=== PATIENT | female | born 1985 | race Caucasian/White ===

== ENCOUNTER 2017-09-01 07:22 | Inpatient (IN) | payer BC ==
[2017-09-01] MEDS ORDERED: Methylergonovine 0.2 MG/1 ML Amp IM PRN (09:54)
[2017-09-01] MEDS ORDERED: Misoprostol 200 MCG Tab PO PRN (09:54)
[2017-09-01] MEDS ORDERED: Water For Irrigation,Sterile 1,000 ML Container IRR PRN (09:54)
[2017-09-01] MEDS ORDERED: Nalbuphine 10 MG/1 ML Vial IVPUSH PRN ×2 (09:54→23:22)
[2017-09-01] MEDS ORDERED: Lidocaine 1% 50 ML MDV INJECT PRN (09:54)
[2017-09-01] MEDS ORDERED: Carboprost Tromethamine 250 MCG/1 ML Amp IM PRN (09:54)
[2017-09-01] MEDS ORDERED: Tranexamic Acid 1,000 MG in Sodium Chloride 0.9% 100 ML IV PRN (09:54)
[2017-09-01] MEDS ORDERED: Sodium Chloride 0.9% 2.5 ML Syringe FLUSH PRN (09:54)
[2017-09-01] MEDS ORDERED: Sodium Chloride 0.9% 10 ML Syringe FLUSH PRN (09:54)
[2017-09-01] MEDS ORDERED: Oxytocin/0.9 % Sodium Chloride 30 UNIT/500 ML BAG IV SCH ×2 (10:00→12:15)
--- NOTE | 2017-09-01 10:21 | PCM.LDHP ---
L&D History of Present Illness - General Date of Service: 09/01/17 Admit Problem/Dx: Patient Status Order with Admit Dx/Problem 09/01/17 07:51 Patient Status [ADT] Routine 09/01/17 09:55 Patient Status [ADT] Routine Admission Diagnosis/Problem Admission Diagnosis/Problem - planned Source of Information: Patient History Limitations: Reports: No Limitations - History of Present Illness Improves with: Reports: None Worsens with: Reports: None Associated Symptoms: Reports: N - Related Data Allergies/Adverse Reactions: Allergies Allergy/AdvReac Type Severity Reaction Status Date / Time No Known Allergies Allergy Verified 08/31/17 10:32 H&P Review of Systems - Review of Systems: Review Of Systems: See Below General: Reports: No Symptoms HEENT: Reports: No Symptoms Pulmonary: Reports: No Symptoms Cardiovascular: Reports: No Symptoms Gastrointestinal: Reports: No Symptoms Genitourinary: Reports: No Symptoms Musculoskeletal: Reports: No Symptoms Skin: Reports: No Symptoms Psychiatric: Reports: No Symptoms Neurological: Reports: No Symptoms Hematologic/Lymphatic: Reports: No Symptoms Immunologic: Reports: No Symptoms L&D Exam - Exam Exam: See Below - Vital Signs Weight: 88.451 kg - OB Specific Fundal Height In cm: 38 Contraction Intensity: Mild to Moderate Movement: Active Heart Tones: Present Presentation: Vertex - Edwards Score Edwards Score Cervix Position: Anterior Edwards Score Consistency: Soft Edwards Score Effacement: >80% Edwards Score Dilation: 1-2 cm Edwards Score Infant's Station: -1 ,0 Edwards Score Total: 10 - Exam General: Alert, Oriented HEENT: PERRLA, Conjunctiva Clear, EACs Clear, EOMI, Hearing Intact, Mucosa Moist & [place], Nares Patent, Normal Nasal Septum, Posterior Pharynx Clear, TMs Clear Neck: Supple, Trachea Midline Lungs: Clear to Auscultation, Normal Respiratory Effort Cardiovascular: Regular Rate, Regular Rhythm GI/Abdominal Exam: Normal Bowel Sounds, Soft, Non-Tender, No Organomegaly, No Distention, No Abnormal Bruit, No Mass, Pelvis Stable Rectal Exam: Normal Exam, Normal Rectal Tone Genitourinary: Normal external exam, Normal bimanual exam, Normal speculum exam Back Exam: Normal Inspection, Full Range of Motion Extremities: Normal Inspection, Normal Range of Motion, Non-Tender, No Pedal Edema, Normal Capillary Refill Skin: Warm, Dry, Intact Neurological: Cranial Nerves Intact, Reflexes Equal Bilateral Psychiatric: Alert, Normal Affect, Normal Mood - Patient Data Lab Results Last 24 hrs: Laboratory Results - last 24 hr 09/01/17 Range/Units 07:35 Membrane Rupture POSITIVE Problem List Initiated/Reviewed/Updated: Yes Orders Last 24hrs: Active Orders 24 hr Category Date Time Status Patient Status [ADT] Routine ADT 09/01/17 07:51 Active Patient Status [ADT] Routine ADT 09/01/17 09:55 Active Heart Tones [RC] CONTINUOUS Care 09/01/17 09:55 Active Non Stress Test [RC] PER UNIT ROUTINE Care 09/01/17 07:51 Active Non Stress Test [RC] PER UNIT ROUTINE Care 09/01/17 09:55 Active May Shower [RC] ASDIRECTED Care 09/01/17 09:55 Active Notify Provider [RC] PRN Care 09/01/17 09:55 Active Up ad Trish [RC] ASDIRECTED Care 09/01/17 07:51 Active Up ad Trish [RC] ASDIRECTED Care 09/01/17 09:55 Active Vaginal Exam [RC] Click to Edit Care 09/01/17 07:51 Active Vaginal Exam [RC] PRN Care 09/01/17 09:55 Active Vital Signs [RC] PER UNIT ROUTINE Care 09/01/17 07:51 Active Vital Signs [RC] PER UNIT ROUTINE Care 09/01/17 09:55 Active CBC W/O DIFF,HEMOGRAM [HEME] Routine Lab 09/01/17 09:55 Ordered TYPE AND SCREEN [BBK] Routine Lab 09/01/17 09:55 Ordered Butorphanol [Stadol] Med 09/01/17 09:54 Active 1 mg IVPUSH Q1H PRN Carboprost Tromethamine [Hemabate DS] Med 09/01/17 09:54 Active 250 mcg IM ASDIRECTED PRN Lactated Ringers [Ringers, Lactated] 1,000 ml Med 09/01/17 10:00 Active IV ASDIRECTED Lidocaine 1% [Xylocaine 1%] Med 09/01/17 09:54 Active 50 ml INJECT .ONCE PRN Methylergonovine [Methergine] Med 09/01/17 09:54 Active 0.2 mg IM ASDIRECTED PRN Misoprostol [Cytotec] Med 09/01/17 09:54 Active 200 mcg PO .ONCE PRN Nalbuphine [Nubain] Med 09/01/17 09:54 Active 10 mg IVPUSH Q1H PRN Oxytocin/0.9 % Sodium Chloride [Oxytocin 30 Unit/500 ML Med 09/01/17 10:00 Active -NS] 30 unit in 500 ml IV TITRATE Sodium Chloride 0.9% [Saline Flush] Med 09/01/17 09:54 Active 10 ml FLUSH ASDIRECTED PRN Sodium Chloride 0.9% [Saline Flush] Med 09/01/17 09:54 Active 2.5 ml FLUSH ASDIRECTED PRN Tranexamic Acid [Cyklokapron] 1,000 mg Med 09/01/17 09:54 Active Sodium Chloride 0.9% [Normal Saline] 100 ml IV ONETIME Water For Irrigation,Sterile [Sterile Water for Med 09/01/17 09:54 Active Irrigation] 1,000 ml IRR ASDIRECTED PRN Scalp Electrode [WOMSER] Per Unit Routine Oth 09/01/17 09:55 Ordered Peripheral IV Insertion Adult [OM.PC] Routine Oth 09/01/17 09:55 Ordered Resuscitation Status Routine Resus Stat 09/01/17 07:51 Ordered Medication Orders Butorphanol Tartrate (Stadol) 1 mg IVPUSH Q1H PRN PRN Reason: Pain Carboprost Tromethamine (Hemabate Ds) 250 mcg IM ASDIRECTED PRN PRN Reason: Post Hemorrhage Tranexamic Acid 1,000 mg/ (Sodium Chloride) 110 mls @ 660 mls/hr IV ONETIME PRN PRN Reason: Bleeding Lactated Ringer's (Ringers, Lactated) 1,000 mls @ 150 mls/hr IV ASDIRECTED GODWIN Oxytocin/Sodium Chloride (Oxytocin 30 Unit/500 Ml-Ns) 30 unit in 500 mls @ 999 mls/hr IV TITRATE GODWIN Lidocaine HCl (Xylocaine 1%) 50 ml INJECT .ONCE PRN PRN Reason: Laceration repair Methylergonovine Maleate (Methergine) 0.2 mg IM ASDIRECTED PRN PRN Reason: Post Hemorrhage Misoprostol (Cytotec) 200 mcg PO .ONCE PRN PRN Reason: Post Hemorrhage Nalbuphine HCl (Nubain) 10 mg IVPUSH Q1H PRN PRN Reason: Pain (severe 7-10) Sodium Chloride (Saline Flush) 10 ml FLUSH ASDIRECTED PRN PRN Reason: Keep Vein Open Sodium Chloride (Saline Flush) 2.5 ml FLUSH ASDIRECTED PRN PRN Reason: Keep Vein Open Sterile Water (Sterile Water For Irrigation) 1,000 ml IRR ASDIRECTED PRN PRN Reason: delivery Assessment/Plan Comment:: IUP term with SROM P0000 Cx. 3/80/ V. Plan to admit the pt she hernando need potocin argumentation later on. She may have epidural when it is appropriate.
[2017-09-01] MEDS: Lactated Ringers 1,000 ML IV SCH ×2 (12:21→15:00)
[2017-09-01] MEDS: Butorphanol 1 MG/ML SDV IVPUSH PRN ×2 (12:41→14:03)
--- NOTE | 2017-09-01 14:31 | PCM.PREANE ---
Preanesthetic Assessment - Anesthesia/Transfusion/Family Hx Anesthesia History: No Prior Anesthesia Transfusion History: No Prior Transfusion(s) - Review of Systems General: No Symptoms Pulmonary: No Symptoms Cardiovascular: No Symptoms Gastrointestinal: No Symptoms Neurological: No Symptoms Other: Reports: None - Physical Assessment Height: 5 ft 4 in Weight: 88.451 kg ASA Class: 2 Mental Status: Alert & Oriented x3 Airway Class: Mallampati = 2 Dentition: Reports: Normal Dentition Thyro-Mental Finger Breadths: 3 Mouth Opening Finger Breadths: 3 ROM/Head Extension: Full Lungs: Clear to Auscultation, Normal Respiratory Effort Cardiovascular: Regular Rate, Regular Rhythm - Lab Values: Laboratory Last Values WBC 17.41 K/uL (4.0-11.0) H 09/01/17 10:15 RBC 4.01 M/uL (4.30-5.90) L 09/01/17 10:15 Hgb 11.1 g/dL (12.0-16.0) L 09/01/17 10:15 Hct 33.6 % (36.0-46.0) L 09/01/17 10:15 MCV 83.8 fL (80.0-98.0) 09/01/17 10:15 MCH 27.7 pg (27.0-32.0) 09/01/17 10:15 MCHC 33.0 g/dL (31.0-37.0) 09/01/17 10:15 RDW Std Deviation 48.1 fl (28.0-62.0) 09/01/17 10:15 RDW Coeff of Jose 16 % (11.0-15.0) H 09/01/17 10:15 Plt Count 240 K/uL (150-400) 09/01/17 10:15 MPV 12.60 fL (7.40-12.00) H 09/01/17 10:15 Nucleated RBC % 0.0 /100WBC 09/01/17 10:15 Nucleated RBCs # 0 K/uL 09/01/17 10:15 Membrane Rupture POSITIVE 09/01/17 07:35 Blood Type O POSITIVE 09/01/17 10:15 Antibody Screen NEGATIVE 09/01/17 10:15 - Allergies Allergies/Adverse Reactions: Allergies Allergy/AdvReac Type Severity Reaction Status Date / Time No Known Allergies Allergy Verified 08/31/17 10:32 - Acknowledgements Anesthesia Type Planned: Epidural Pt an Appropriate Candidate for the Planned Anesthesia: Yes Alternatives and Risks of Anesthesia Discussed w Pt/Guardian: Yes Pt/Guardian Understands and Agrees with Anesthesia Plan: Yes PreAnesthesia Questionnaire - Past Health History Medical/Surgical History: Denies Medical/Surgical History HEENT History: Reports: None Cardiovascular History: Reports: None Respiratory History: Reports: Asthma Gastrointestinal History: Reports: GERD Genitourinary History: Reports: None 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 Para: 0 LMP (Approximate): Musculoskeletal History: Reports: None Neurological History: Reports: None Psychiatric History: Reports: None Endocrine/Metabolic History: Reports: Obesity/BMI 30+ Hematologic History: Reports: None Immunologic History: Reports: None Oncologic (Cancer) History: Reports: None Dermatologic History: Reports: None - Infectious Disease History Infectious Disease History: Reports: None - SUBSTANCE USE Smoking Status *Q: Never Smoker Second Hand Smoke Exposure: No Recreational Drug Use History: No - CURRENT (IN HOUSE) MEDS Current Meds: Current Medications Butorphanol Tartrate (Stadol) 1 mg IVPUSH Q1H PRN PRN Reason: Pain Last Admin: 09/01/17 14:03 Dose: 1 mg Carboprost Tromethamine (Hemabate Ds) 250 mcg IM ASDIRECTED PRN PRN Reason: Post Hemorrhage Tranexamic Acid 1,000 mg/ (Sodium Chloride) 110 mls @ 660 mls/hr IV ONETIME PRN PRN Reason: Bleeding Lactated Ringer's (Ringers, Lactated) 1,000 mls @ 150 mls/hr IV ASDIRECTED GODWIN Last Admin: 09/01/17 12:21 Dose: 150 mls/hr Oxytocin/Sodium Chloride (Oxytocin 30 Unit/500 Ml-Ns) 30 unit in 500 mls @ 999 mls/hr IV TITRATE GODWIN Oxytocin/Sodium Chloride (Oxytocin 30 Unit/500 Ml-Ns) 30 unit in 500 mls @ 2 mls/hr IV TITRATE GODWIN; 2 MUNITS/MIN PRN Reason: Protocol Last Infusion: 09/01/17 13:14 Dose: 6 munits/min, 6 mls/hr Lidocaine HCl (Xylocaine 1%) 50 ml INJECT .ONCE PRN PRN Reason: Laceration repair Methylergonovine Maleate (Methergine) 0.2 mg IM ASDIRECTED PRN PRN Reason: Post Hemorrhage Misoprostol (Cytotec) 200 mcg PO .ONCE PRN PRN Reason: Post Hemorrhage Nalbuphine HCl (Nubain) 10 mg IVPUSH Q1H PRN PRN Reason: Pain (severe 7-10) Sodium Chloride (Saline Flush) 10 ml FLUSH ASDIRECTED PRN PRN Reason: Keep Vein Open Sodium Chloride (Saline Flush) 2.5 ml FLUSH ASDIRECTED PRN PRN Reason: Keep Vein Open Sterile Water (Sterile Water For Irrigation) 1,000 ml IRR ASDIRECTED PRN PRN Reason: delivery
--- NOTE | 2017-09-01 17:26 | PCM.PNLD ---
Labor Progress Note - VS & Meds Active Medications: Current Medications Butorphanol Tartrate (Stadol) 1 mg IVPUSH Q1H PRN PRN Reason: Pain Last Admin: 09/01/17 14:03 Dose: 1 mg Carboprost Tromethamine (Hemabate Ds) 250 mcg IM ASDIRECTED PRN PRN Reason: Post Hemorrhage Tranexamic Acid 1,000 mg/ (Sodium Chloride) 110 mls @ 660 mls/hr IV ONETIME PRN PRN Reason: Bleeding Lactated Ringer's (Ringers, Lactated) 1,000 mls @ 150 mls/hr IV ASDIRECTED GODWIN Last Admin: 09/01/17 15:00 Dose: 150 mls/hr Oxytocin/Sodium Chloride (Oxytocin 30 Unit/500 Ml-Ns) 30 unit in 500 mls @ 999 mls/hr IV TITRATE GODWIN Oxytocin/Sodium Chloride (Oxytocin 30 Unit/500 Ml-Ns) 30 unit in 500 mls @ 2 mls/hr IV TITRATE GODWIN; 2 MUNITS/MIN PRN Reason: Protocol Last Infusion: 09/01/17 15:18 Dose: 4 munits/min, 4 mls/hr Lidocaine HCl (Xylocaine 1%) 50 ml INJECT .ONCE PRN PRN Reason: Laceration repair Methylergonovine Maleate (Methergine) 0.2 mg IM ASDIRECTED PRN PRN Reason: Post Hemorrhage Misoprostol (Cytotec) 200 mcg PO .ONCE PRN PRN Reason: Post Hemorrhage Nalbuphine HCl (Nubain) 10 mg IVPUSH Q1H PRN PRN Reason: Pain (severe 7-10) Sodium Chloride (Saline Flush) 10 ml FLUSH ASDIRECTED PRN PRN Reason: Keep Vein Open Sodium Chloride (Saline Flush) 2.5 ml FLUSH ASDIRECTED PRN PRN Reason: Keep Vein Open Sterile Water (Sterile Water For Irrigation) 1,000 ml IRR ASDIRECTED PRN PRN Reason: delivery Discontinued Medications Fentanyl/Bupivacaine HCl (Lcvkdbfo-Sgyig-Gn 2 Mcg/Ml-0.125%) Confirm Administered Dose 100 mls @ as directed EP .STK-MED ONE Stop: 09/01/17 14:34 - Uterine Contractions Uterine Monitoring Mode: External [place] Contraction Intensity: Moderate - Monitoring Monitor Mode: External Ultrasound Heart Rate (FHR) Variability: Moderate (6-25 bmp) Accelerations: Present, 15x15 Decelerations: None Strip Review: Category I - Vaginal Exam Dilation (cm): 4-5 Effacement (Percent): 100 Station: -3 Cervical Position: Anterior Sterile Vaginal Exam Performed By: Steven Perera - Labor Progress (Free Text) Labor Progress: Pt had Epidural she is on pitocin. tameka keep current management and reevaluate at 10pm.
[2017-09-01] MEDS ORDERED: Bupivacaine 0.5% 10 ML SDV ONE ×2 (21:17→22:35)
[2017-09-01] MEDS ORDERED: ceFAZolin/Dextrose,Iso-Osmotic 2 GM/50 ML Duplex Bag IV ONE (22:35)
[2017-09-01] MEDS ORDERED: Oxytocin 10 Units/1 ML SDV ONE (23:00)
[2017-09-01] MEDS ORDERED: Ondansetron 4 MG/2 ML SDV ONE (23:00)
[2017-09-01] MEDS ORDERED: Morphine PF 1 MG/ML Amp ONE (23:05)
[2017-09-01] MEDS ORDERED: fentaNYL 100 MCG/2 ML SDV IVPUSH PRN (23:22)
[2017-09-01] MEDS ORDERED: Acetaminophen/oxyCODONE 325-5 MG Tab PO PRN ×3 (23:22→23:34)
[2017-09-01] MEDS ORDERED: Phenylephrine/Normal Saline 100 MCG/ML 10 ML Syringe ONE (23:23)
[2017-09-01] MEDS ORDERED: Octyl 2-Cyanoacrylate 1 Tube ONE (23:32)
[2017-09-01] MEDS ORDERED: diphenhydrAMINE 50 MG/ML SDV IVPUSH PRN (23:34)
[2017-09-01] MEDS ORDERED: Bisacodyl 10 MG Supp RECTAL PRN (23:34)
[2017-09-01] MEDS ORDERED: Ibuprofen 800 MG Tab PO PRN (23:34)
[2017-09-01] MEDS ORDERED: Ondansetron 4 MG/2 ML SDV IV PRN (23:34)
[2017-09-01] MEDS ORDERED: Lanolin 100% Cream 7 GM Tube TOP PRN (23:34)
--- NOTE | 2017-09-01 23:38 | PCM.OPNOTE ---
- General Post-Op/Procedure Note Date of Surgery/Procedure: 09/01/17 Operative Procedure(s): Primary C/Section Pre Op Diagnosis: IUP 40wks faliar to progress Post-Op Diagnosis: Same Primary Surgeon: Steven Perera Cash Sales Audit Clerk: Michelle Casillas EBL in mLs: 750 Complications: None Condition: Good
--- NOTE | 2017-09-01 23:42 | PCM.SN ---
- Free Text/Narrative Note: caled in for C section, 1st stage labor arrest. no distress. Working epidural. NKDA. Plan -top off epidural for c/s, epidural duramorph for post op analgesia.
[2017-09-01] MEDS ORDERED: Lactated Ringers 1,000 ML IV SCH (23:45)
[2017-09-02] MEDS: Ketorolac 30 MG/ML SDV IVPUSH SCH ×4 (00:03→18:44)
--- NOTE | 2017-09-02 00:07 | PCM.POSTAN ---
POST ANESTHESIA ASSESSMENT - MENTAL STATUS Mental Status: Alert, Oriented - VITAL SIGNS Pulse Rate: 117 SaO2: 100 Resp Rate: 20 Blood Pressure: 123/60 - RESPIRATORY Respiratory Status: Respiratory Rate WNL, Airway Patent, O2 Saturation Stable - CARDIOVASCULAR CV Status: Pulse Rate WNL, Blood Pressure Stable - GASTROINTESTINAL GI Status: No Symptoms - POST OP HYDRATION Hydration Status: Adequate & Stable - OBSERVATIONS Free Text/Narrative:: Pt's pre-op tachycardia remains stable at this time.
--- NOTE | 2017-09-02 01:08 | OR ---
SURGEON: Steven Perera MD DATE OF PROCEDURE: 09/01/2017 PREOPERATIVE DIAGNOSIS: Intrauterine , 40 plus weeks, primigravida, failure to progress. POSTOPERATIVE DIAGNOSIS: Intrauterine , 40 plus weeks, primigravida, failure to progress. OPERATION PERFORMED: Primary low transverse section. PROGRAMMER OR ANALYST: Michelle Casillas CNM. BUILDING EQUIPMENT OPERATOR: Liberty Richardson MD ANESTHESIA: Epidural, Cliff Jimenez and Dr. Yates. ESTIMATED BLOOD LOSS: 750 mL. COMPLICATIONS: None. FINDINGS: Female fetus. score reported to be 8 and 9. The weight is not available at this time. INDICATIONS FOR SURGERY: This patient is a primigravida. She is followed in our clinic primarily by our nurse professional housing consultant. She is admitted early this morning with a spontaneous rupture of membrane and that was confirmed, there was a tinged meconium stain with amniotic fluid. At the time of the admission, the patient was 3 cm, 90%, vertex, and -3. The patient observed initially and then she progressed to 4 cm, complete, vertex, and -3. She had epidural anesthesia for labor analgesia. The patient had Pitocin augmentation for labor. She has had adequate labor for an excess of 8 hours. The patient did not progress; 4 to 5, complete, vertex, and -3. The possibility of cephalopelvic disproportion versus failure to progress is entertained at this time. A decision made to do a primary low transverse section. PROCEDURE IN DETAIL: The patient was brought to the OR. After adequate level of epidural anesthesia with the Hamlin catheter in the bladder, a low transverse Pfannenstiel skin incision done. Jaki fascia and rectus fascia were opened in direction of the incision. The 2 recti muscles were , and peritoneal cavity was entered. Bladder flap was raised in the usual manner, pushing the bladder away from the lower uterine segment. Low transverse uterine incision was done and extended manually and fetus was in a vertex position, and the head was totally unengaged and above the pelvis. The head was delivered, and the rest of the fetus was delivered without any problem. Fetus was female, cried immediately. score reported to be later 8 and 9. The placenta delivered spontaneous, complete, and intact and then repair of the lower uterine segment was done with 2-0 Vicryl continuous interlocking in 2 layers. Reperitonealization done with 3- 0 Vicryl continuous and then the peritoneal cavity evacuated completely from all blood and blood clot and closed with 3-0 Vicryl continuous. The rectus fascia was closed with #1 PDS continuous and Jaki fascia with 3-0 Vicryl continuous and skin closed with 3-0 on a Nick needle in a subcuticular fashion. Instrument and sponge count were correct. The patient tolerated the procedure well and went to recovery room in stable, general condition. JAZMINE / DONA /[id number]
[2017-09-02] MEDS: Docusate Sodium 100 MG Cap PO SCH (08:19)
--- NOTE | 2017-09-02 08:28 | PCM48HPAN ---
Post Anesthesia Note - EVALUATION WITHIN 48HRS OF ANESTHETIC Vital Signs in Normal Range: Yes Patient Participated in Evaluation: Yes Respiratory Function Stable: Yes Airway Patent: Yes Cardiovascular Function Stable: Yes Hydration Status Stable: Yes Pain Control Satisfactory: Yes Nausea and Vomiting Control Satisfactory: Yes Mental Status Recovered: Yes Pulse Rate: 117 Resp Rate: 18 Blood Pressure: 123/60 - COMMENTS/OBSERVATIONS Free Text/Narrative:: Pt with no complaints of any anesthesia complications.
--- NOTE | 2017-09-02 08:34 | PCM.PNPP ---
- General Info Date of Service: 09/02/17 Admission Dx/Problem (Free Text): Patient Status Order with Admit Dx/Problem 09/01/17 07:51 Patient Status [ADT] Routine 09/01/17 09:55 Patient Status [ADT] Routine Admission Diagnosis/Problem Admission Diagnosis/Problem - planned Functional Status: Reports: Pain Controlled, Tolerating Diet, Ambulating - Review of Systems General: Reports: No Symptoms HEENT: Reports: No Symptoms Pulmonary: Reports: No Symptoms Cardiovascular: Reports: No Symptoms Gastrointestinal: Reports: No Symptoms Genitourinary: Reports: No Symptoms Musculoskeletal: Reports: No Symptoms Skin: Reports: No Symptoms Neurological: Reports: No Symptoms Psychiatric: Reports: No Symptoms - General Info Date of Service: 09/02/17 - Patient Data Vital Signs - Most Recent: Last Vital Signs Temp 36.4 C 09/02/17 05:00 Pulse 117 H 09/02/17 08:28 Resp 18 09/02/17 08:28 BP 123/60 09/02/17 08:28 Pulse Ox 94 L 09/02/17 06:00 Weight - Most Recent: 88.451 kg I&O - Last 24 Hours: Intake & Output 09/01/17 09/02/17 09/02/17 22:59 06:59 14:59 Intake Total 800 Output Total 395 Balance 405 Lab Results - Last 24 Hours: Laboratory Results - last 24 hr 09/01/17 09/01/17 09/02/17 Range/Units 10:15 10:15 05:27 WBC 17.41 H (4.0-11.0) K/uL RBC 4.01 L (4.30-5.90) M/uL Hgb 11.1 L 9.2 L (12.0-16.0) g/dL Hct 33.6 L 28.6 L (36.0-46.0) % MCV 83.8 (80.0-98.0) fL MCH 27.7 (27.0-32.0) pg MCHC 33.0 (31.0-37.0) g/dL RDW Std Deviation 48.1 (28.0-62.0) fl RDW Coeff of Jose 16 H (11.0-15.0) % Plt Count 240 (150-400) K/uL MPV 12.60 H (7.40-12.00) fL Nucleated RBC % 0.0 /100WBC Nucleated RBCs # 0 K/uL Blood Type O POSITIVE Antibody Screen NEGATIVE Med Orders - Current: Current Medications Bisacodyl (Dulcolax) 10 mg RECTAL .ONCE PRN PRN Reason: Constipation Butorphanol Tartrate (Stadol) 1 mg IVPUSH Q1H PRN PRN Reason: Pain Last Admin: 09/01/17 14:03 Dose: 1 mg Carboprost Tromethamine (Hemabate Ds) 250 mcg IM ASDIRECTED PRN PRN Reason: Post Hemorrhage Diphenhydramine HCl (Benadryl) 25 mg IVPUSH Q6H PRN PRN Reason: Itching or Nausea Docusate Sodium (Colace) 100 mg PO BID [facility] Last Admin: 09/02/17 08:19 Dose: 100 mg Emollient Ointment (Lansinoh Hpa) 0 gm TOP ASDIRECTED PRN PRN Reason: Sore Nipples Fentanyl (Sublimaze) 50 mcg IVPUSH Q5M PRN PRN Reason: Pain (severe 7-10) Stop: 09/02/17 23:22 Tranexamic Acid 1,000 mg/ (Sodium Chloride) 110 mls @ 660 mls/hr IV ONETIME PRN PRN Reason: Bleeding Lactated Ringer's (Ringers, Lactated) 1,000 mls @ 150 mls/hr IV ASDIRECTED [facility] Last Admin: 09/01/17 15:00 Dose: 150 mls/hr Oxytocin/Sodium Chloride (Oxytocin 30 Unit/500 Ml-Ns) 30 unit in 500 mls @ 999 mls/hr IV TITRATE GODWIN Oxytocin/Sodium Chloride (Oxytocin 30 Unit/500 Ml-Ns) 30 unit in 500 mls @ 2 mls/hr IV TITRATE GODWIN; 2 MUNITS/MIN PRN Reason: Protocol Last Infusion: 09/01/17 22:00 Dose: 14 munits/min, 14 mls/hr Lactated Ringer's (Ringers, Lactated) 1,000 mls @ 125 mls/hr IV ASDIRECTED [facility] Last Admin: 09/02/17 02:30 Dose: 125 mls/hr Ibuprofen (Motrin) 800 mg PO Q8H PRN PRN Reason: mild pain or fever Ketorolac Tromethamine (Toradol) 30 mg IVPUSH Q6H [facility] Stop: 09/02/17 23:46 Last Admin: 09/02/17 06:25 Dose: 30 mg Lidocaine HCl (Xylocaine 1%) 50 ml INJECT .ONCE PRN PRN Reason: Laceration repair Methylergonovine Maleate (Methergine) 0.2 mg IM ASDIRECTED PRN PRN Reason: Post Hemorrhage Misoprostol (Cytotec) 200 mcg PO .ONCE PRN PRN Reason: Post Hemorrhage Nalbuphine HCl (Nubain) 10 mg IVPUSH Q1H PRN PRN Reason: Pain (severe 7-10) Nalbuphine HCl (Nubain) 2.5 mg IVPUSH Q3H PRN PRN Reason: Pruritis Stop: 09/02/17 23:22 Ondansetron HCl (Zofran) 4 mg IV Q4H PRN PRN Reason: Nausea/Vomiting Oxycodone/Acetaminophen (Percocet 325-5 Mg) 1 tab PO ONETIME PRN PRN Reason: Pain (moderate 4-6) Oxycodone/Acetaminophen (Percocet 325-5 Mg) 1 tab PO Q4H PRN PRN Reason: Pain (moderate 4-6) Oxycodone/Acetaminophen (Percocet 325-5 Mg) 2 tab PO Q4H PRN PRN Reason: Pain (moderate 4-6) Sodium Chloride (Saline Flush) 10 ml FLUSH ASDIRECTED PRN PRN Reason: Keep Vein Open Sodium Chloride (Saline Flush) 2.5 ml FLUSH ASDIRECTED PRN PRN Reason: Keep Vein Open Sterile Water (Sterile Water For Irrigation) 1,000 ml IRR ASDIRECTED PRN PRN Reason: delivery Discontinued Medications Bupivacaine HCl (Sensorcaine-Mpf 0.5%) Confirm Administered Dose 10 ml .ROUTE .STK-MED ONE Stop: 09/01/17 21:18 Bupivacaine HCl (Sensorcaine-Mpf 0.5%) Confirm Administered Dose 20 ml .ROUTE .STK-MED ONE Stop: 09/01/17 22:36 Cefazolin Sodium/Dextrose (Ancef) Confirm Administered Dose 2 gm IV .STK-MED ONE Stop: 09/01/17 22:36 Fentanyl/Bupivacaine HCl (Uvabguuq-Jdqnv-Lm 2 Mcg/Ml-0.125%) Confirm Administered Dose 100 mls @ as directed EP .STK-MED ONE Stop: 09/01/17 14:34 Morphine Sulfate (Duramorph Pf) Confirm Administered Dose 1 mg .ROUTE .STK-MED ONE Stop: 09/01/17 23:06 Octyl Cyanoacrylate (Dermabond Advance) Confirm Administered Dose 1 applic .ROUTE .STK-MED ONE Stop: 09/01/17 23:33 Ondansetron HCl (Zofran) Confirm Administered Dose 4 mg .ROUTE .STK-MED ONE Stop: 09/01/17 23:01 Oxytocin (Pitocin) Confirm Administered Dose 20 unit .ROUTE .STK-MED ONE Stop: 09/01/17 23:01 Phenylephrine HCl (Phenylephrine In Ns 100 Mcg/Ml) Confirm Administered Dose 1 mg .ROUTE .STK-MED ONE Stop: 09/01/17 23:24 - Interaction Infant Disposition, : in Room with Family Interaction: Holding Feeding: Breastfed ; Nursed Well Support Person: Significant Other - Recovery Exam Fundal Tone: Firm Fundal Level: At Umbilicus Fundal Placement: Midline Lochia Amount: Small Lochia Color: Rubra/Red Perineum Description: Intact, Minimal Bruising/Swelling Bladder Status: Indwelling Catheter in Place Urinary Elimination: Indwelling Catheter - Exam General: Alert, Oriented, Cooperative, No Acute Distress Lungs: Normal Respiratory Effort GI/Abdominal Exam: Soft, Non-Tender Extremities: Non-Tender, Normal Capillary Refill, Pedal Edema Skin: Warm, Dry, Intact Wound/Incisions: Healing Well, Dressing Dry and Intact Neurological: No New Focal Deficit, Normal Speech, Normal Tone Psy/Mental Status: Alert, Normal Affect, Normal Mood - Problem List & Annotations (1) Supervision of normal IUP (intrauterine ) in primigravida SNOMED Code(s): 22548248, 121679937, 347170915 Code(s): Z34.00 - ENCNTR FOR SUPRVSN OF NORMAL FIRST , UNSP TRIMESTER Status: Acute Priority: High Current Visit: Yes Qualifiers: Trimester: third trimester Qualified Code(s): Z34.03 - Encounter for supervision of normal first , third trimester (2) delivery delivered SNOMED Code(s): 645848971 Code(s): O82 - ENCOUNTER FOR DELIVERY WITHOUT INDICATION Status: Acute Priority: High Current Visit: Yes - Problem List Review Problem List Initiated/Reviewed/Updated: Yes - Plan Plan:: IUP term with SROM P0000 Cx. / V. Plan to admit the pt she hernando need potocin argumentation later on. She may have epidural when it is appropriate. PP day 1 A: VSS, AF, Up to walk today, paige in, dressing intact and no drainage noted, breast feeding well. Bonding well with infant. Stable. P: continue pp plan of care
[2017-09-03] MEDS: Ketorolac 30 MG/ML SDV IVPUSH SCH (00:40)
[2017-09-03] MEDS: Docusate Sodium 100 MG Cap PO SCH (08:44)
--- NOTE | 2017-09-03 08:44 | PCM.DCSUM1 ---
Discharge Summary - Hospital Course Free Text/Narrative:: Discharge home with infant, Follow up 10 days for incision check and 6 weeks for post . Come sooner if needed. - Discharge Data Discharge Date: 09/03/17 Discharge Disposition: Home, Self-Care 01 Condition: Good - Discharge Diagnosis/Problem(s) (1) Supervision of normal IUP (intrauterine ) in primigravida SNOMED Code(s): 92479879, 686312082, 425312959 ICD Code: Z34.00 - ENCNTR FOR SUPRVSN OF NORMAL FIRST , UNSP TRIMESTER Status: Acute Priority: High Current Visit: Yes Qualifiers: Trimester: third trimester Qualified Code(s): Z34.03 - Encounter for supervision of normal first , third trimester (2) delivery delivered SNOMED Code(s): 426236365 ICD Code: O82 - ENCOUNTER FOR DELIVERY WITHOUT INDICATION Status: Acute Priority: High Current Visit: Yes - Patient Summary/Data Operative Procedure(s) Performed: Primary C/Section - Patient Instructions Diet: Usual Diet as Tolerated Activity: As Tolerated, No Strenuous Activities, Rest and Relax Today Driving: May Drive Today Showering/Bathing: May Shower Wound/Incision Care: Keep Operative Site/Wound Site Clean and Dry Notify Provider of: Fever, Increased Pain, Swelling and Redness, Drainage, Nausea and/or Vomiting Other/Special Instructions: Discharge home with infant, Follow up 10 days for incision check and 6 weeks for post . Come sooner if needed. - Discharge Plan Referrals: [facility] [Outside] Michelle Casillas CNM [Mid-] - (1 week-September 12@ 3:00pm wLisette Casillas 6 week- October 14 @ 1:30pm w/ Michelle Casillas ) - General Info Date of Service: 09/03/17 Admission Dx/Problem (Free Text: Patient Status Order with Admit Dx/Problem 09/01/17 07:51 Patient Status [ADT] Routine 09/01/17 09:55 Patient Status [ADT] Routine Admission Diagnosis/Problem Admission Diagnosis/Problem - planned Functional Status: Reports: Pain Controlled, Tolerating Diet, Ambulating, Urinating - Review of Systems General: Reports: No Symptoms HEENT: Reports: No Symptoms Pulmonary: Reports: No Symptoms Cardiovascular: Reports: No Symptoms Gastrointestinal: Reports: No Symptoms Genitourinary: Reports: No Symptoms Musculoskeletal: Reports: No Symptoms Skin: Reports: No Symptoms Neurological: Reports: No Symptoms Psychiatric: Reports: No Symptoms - Patient Data Vitals - Most Recent: Last Vital Signs Temp 36.6 C 09/03/17 08:00 Pulse 84 09/03/17 08:00 Resp 18 09/03/17 08:00 BP 137/84 09/03/17 08:00 Pulse Ox 96 09/03/17 08:00 Weight - Most Recent: 88.451 kg I&O - Last 24 hours: Intake & Output 09/02/17 09/03/17 09/03/17 22:59 06:59 14:59 Output Total 400 Balance -400 Med Orders - Current: Current Medications Bisacodyl (Dulcolax) 10 mg RECTAL .ONCE PRN PRN Reason: Constipation Butorphanol Tartrate (Stadol) 1 mg IVPUSH Q1H PRN PRN Reason: Pain Last Admin: 09/01/17 14:03 Dose: 1 mg Carboprost Tromethamine (Hemabate Ds) 250 mcg IM ASDIRECTED PRN PRN Reason: Post Hemorrhage Diphenhydramine HCl (Benadryl) 25 mg IVPUSH Q6H PRN PRN Reason: Itching or Nausea Docusate Sodium (Colace) 100 mg PO BID GODWIN Last Admin: 09/02/17 08:19 Dose: 100 mg Emollient Ointment (Lansinoh Hpa) 0 gm TOP ASDIRECTED PRN PRN Reason: Sore Nipples Tranexamic Acid 1,000 mg/ (Sodium Chloride) 110 mls @ 660 mls/hr IV ONETIME PRN PRN Reason: Bleeding Lactated Ringer's (Ringers, Lactated) 1,000 mls @ 150 mls/hr IV ASDIRECTED GODWIN Last Admin: 09/01/17 15:00 Dose: 150 mls/hr Oxytocin/Sodium Chloride (Oxytocin 30 Unit/500 Ml-Ns) 30 unit in 500 mls @ 999 mls/hr IV TITRATE GODWIN Oxytocin/Sodium Chloride (Oxytocin 30 Unit/500 Ml-Ns) 30 unit in 500 mls @ 2 mls/hr IV TITRATE GODWIN; 2 MUNITS/MIN PRN Reason: Protocol Last Infusion: 09/01/17 22:00 Dose: 14 munits/min, 14 mls/hr Lactated Ringer's (Ringers, Lactated) 1,000 mls @ 125 mls/hr IV ASDIRECTED GODWIN Last Admin: 09/02/17 02:30 Dose: 125 mls/hr Ibuprofen (Motrin) 800 mg PO Q8H PRN PRN Reason: mild pain or fever Lidocaine HCl (Xylocaine 1%) 50 ml INJECT .ONCE PRN PRN Reason: Laceration repair Methylergonovine Maleate (Methergine) 0.2 mg IM ASDIRECTED PRN PRN Reason: Post Hemorrhage Misoprostol (Cytotec) 200 mcg PO .ONCE PRN PRN Reason: Post Hemorrhage Nalbuphine HCl (Nubain) 10 mg IVPUSH Q1H PRN PRN Reason: Pain (severe 7-10) Ondansetron HCl (Zofran) 4 mg IV Q4H PRN PRN Reason: Nausea/Vomiting Oxycodone/Acetaminophen (Percocet 325-5 Mg) 1 tab PO ONETIME PRN PRN Reason: Pain (moderate 4-6) Oxycodone/Acetaminophen (Percocet 325-5 Mg) 1 tab PO Q4H PRN PRN Reason: Pain (moderate 4-6) Oxycodone/Acetaminophen (Percocet 325-5 Mg) 2 tab PO Q4H PRN PRN Reason: Pain (moderate 4-6) Sodium Chloride (Saline Flush) 10 ml FLUSH ASDIRECTED PRN PRN Reason: Keep Vein Open Sodium Chloride (Saline Flush) 2.5 ml FLUSH ASDIRECTED PRN PRN Reason: Keep Vein Open Sterile Water (Sterile Water For Irrigation) 1,000 ml IRR ASDIRECTED PRN PRN Reason: delivery Discontinued Medications Bupivacaine HCl (Sensorcaine-Mpf 0.5%) Confirm Administered Dose 10 ml .ROUTE .STK-MED ONE Stop: 09/01/17 21:18 Bupivacaine HCl (Sensorcaine-Mpf 0.5%) Confirm Administered Dose 20 ml .ROUTE .STK-MED ONE Stop: 09/01/17 22:36 Cefazolin Sodium/Dextrose (Ancef) Confirm Administered Dose 2 gm IV .STK-MED ONE Stop: 09/01/17 22:36 Fentanyl (Sublimaze) 50 mcg IVPUSH Q5M PRN PRN Reason: Pain (severe 7-10) Stop: 09/02/17 23:22 Fentanyl/Bupivacaine HCl (Jisuduzw-Mjjmw-Ld 2 Mcg/Ml-0.125%) Confirm Administered Dose 100 mls @ as directed EP .STK-MED ONE Stop: 09/01/17 14:34 Ketorolac Tromethamine (Toradol) 30 mg IVPUSH Q6H GODWIN Stop: 09/02/17 23:46 Last Admin: 09/03/17 00:40 Dose: 30 mg Morphine Sulfate (Duramorph Pf) Confirm Administered Dose 1 mg .ROUTE .STK-MED ONE Stop: 09/01/17 23:06 Nalbuphine HCl (Nubain) 2.5 mg IVPUSH Q3H PRN PRN Reason: Pruritis Stop: 09/02/17 23:22 Octyl Cyanoacrylate (Dermabond Advance) Confirm Administered Dose 1 applic .ROUTE .STK-MED ONE Stop: 09/01/17 23:33 Ondansetron HCl (Zofran) Confirm Administered Dose 4 mg .ROUTE .STK-MED ONE Stop: 09/01/17 23:01 Oxytocin (Pitocin) Confirm Administered Dose 20 unit .ROUTE .STK-MED ONE Stop: 09/01/17 23:01 Phenylephrine HCl (Phenylephrine In Ns 100 Mcg/Ml) Confirm Administered Dose 1 mg .ROUTE .STK-MED ONE Stop: 09/01/17 23:24 - Exam General: Reports: Alert, Oriented, Cooperative, No Acute Distress Lungs: Reports: Clear to Auscultation, Normal Respiratory Effort Cardiovascular: Reports: Regular Rate, Regular Rhythm, No Murmurs GI/Abdominal Exam: Soft, Non-Tender (Female) Exam: Vaginal Bleeding Rectal (Female) Exam: Deferred Back Exam: Reports: Normal Inspection, Full Range of Motion Extremities: Normal Inspection, Normal Range of Motion, Non-Tender, No Pedal Edema, Normal Capillary Refill Skin: Reports: Warm, Dry, Intact Wound/Incisions: Reports: Healing Well, No Drainage Neurological: Reports: No New Focal Deficit, Normal Speech, Normal Tone Psy/Mental Status: Reports: Alert, Normal Affect, Normal Mood *Q Meaningful Use (DIS) - VTE *Q VTE Criteria *Q: - Stroke *Q Stroke Criteria *Q: - AMI *Q AMI Criteria *Q:
[2017-09-03] MEDS ORDERED: Measles, Mumps & Rubella Vaccine 0.5 ML SDV SUBCUT ONE (10:33)
== END 2017-09-03 11:30 | disposition home or self-care (01) | DRG 540 ==
LOC: MW.OBCHECK 07:22 → MW.OB 07:24 → MW.OBCHECK 10:19 → OBSVTOIN 23:17 → MW.OB 09-02 00:15
PROVIDERS: ADMIT Obstetrics & Gynecology; ATTEND Obstetrics & Gynecology
PROC: 10D00Z1 Extraction of Products of Conception, Low, Open Approach (ICD-10-PCS; principal; 2017-09-01)
PROC: 00HU33Z Insertion of Infusion Device into Spinal Canal, Percutaneous Approach (ICD-10-PCS; 2017-09-01)
PROC: 3E0R3BZ Introduction of Anesthetic Agent into Spinal Canal, Percutaneous Approach (ICD-10-PCS; 2017-09-01)
DX: O62.0 Primary inadequate contractions (principal); O32.4XX0 Maternal care for high head at term, not applicable or unspecified; Z3A.40 40 weeks gestation of pregnancy; Z37.0 Single live birth
CPT/HCPCS: 01967; 01968; 36415; 59025; 84112; 85014; 85018; 85027; 86850; 86900; 86901; 90707; A9270-GY; J0595; J0690; J1885; J2274; J2405; J2590; J7120

== ENCOUNTER 2019-04-22 09:50 | Day surgery (SDC) | payer BC, OTHER ==
--- NOTE | 2019-04-22 10:25 | PCM.PREANE ---
Preanesthetic Assessment - Anesthesia/Transfusion/Family Hx Anesthesia History: Prior Anesthesia Without Reaction Family History of Anesthesia Reaction: No Transfusion History: No Prior Transfusion(s) Intubation History: Unknown - Review of Systems General: No Symptoms Pulmonary: No Symptoms Cardiovascular: No Symptoms Gastrointestinal: No Symptoms Neurological: No Symptoms Other: Reports: None - Physical Assessment Height: 5 ft 4 in Weight: 71.668 kg ASA Class: 2 Mental Status: Alert & Oriented x3 Airway Class: Mallampati = 2 Dentition: Reports: Normal Dentition Thyro-Mental Finger Breadths: 3 Mouth Opening Finger Breadths: 3 ROM/Head Extension: Full Lungs: Clear to Auscultation, Normal Respiratory Effort Cardiovascular: Regular Rate, Regular Rhythm - Lab Values: Laboratory Last Values WBC 10.17 K/uL (4.0-11.0) 04/22/19 09:20 RBC 4.39 M/uL (4.30-5.90) 04/22/19 09:20 Hgb 13.0 g/dL (12.0-16.0) 04/22/19 09:20 Hct 39.4 % (36.0-46.0) 04/22/19 09:20 MCV 89.7 fL (80.0-98.0) 04/22/19 09:20 MCH 29.6 pg (27.0-32.0) 04/22/19 09:20 MCHC 33.0 g/dL (31.0-37.0) 04/22/19 09:20 RDW Std Deviation 47.7 fl (28.0-62.0) 04/22/19 09:20 RDW Coeff of Jose 15 % (11.0-15.0) 04/22/19 09:20 Plt Count 254 K/uL (150-400) 04/22/19 09:20 MPV 10.20 fL (7.40-12.00) 04/22/19 09:20 Neut % (Auto) 64.3 % (48.0-80.0) 04/22/19 09:20 Lymph % (Auto) 23.0 % (16.0-40.0) 04/22/19 09:20 Webb % (Auto) 6.0 % (0.0-15.0) 04/22/19 09:20 Eos % (Auto) 6.3 % (0.0-7.0) 04/22/19 09:20 Baso % (Auto) 0.4 % (0.0-1.5) 04/22/19 09:20 Neut # (Auto) 6.5 K/uL (1.4-5.7) H 04/22/19 09:20 Lymph # (Auto) 2.3 K/uL (0.6-2.4) 04/22/19 09:20 Webb # (Auto) 0.6 K/uL (0.0-0.8) 04/22/19 09:20 Eos # (Auto) 0.6 K/uL (0.0-0.7) 04/22/19 09:20 Baso # (Auto) 0.0 K/uL (0.0-0.1) 04/22/19 09:20 Nucleated RBC % 0.0 /100WBC 04/22/19 09:20 Nucleated RBCs # 0 K/uL 04/22/19 09:20 - Allergies Allergies/Adverse Reactions: Allergies Allergy/AdvReac Type Severity Reaction Status Date / Time eucalyptus Allergy Shortness Verified 04/22/19 10:23 of Breath - Blood Blood Available: No - Anesthesia Plan Pre-Op Medication Ordered: None - Acknowledgements Anesthesia Type Planned: General Anesthesia Pt an Appropriate Candidate for the Planned Anesthesia: Yes Alternatives and Risks of Anesthesia Discussed w Pt/Guardian: Yes Pt/Guardian Understands and Agrees with Anesthesia Plan: Yes PreAnesthesia Questionnaire - Past Health History Medical/Surgical History: Denies Medical/Surgical History HEENT History: Reports: Other (See Below) Other HEENT History: wears glasses Cardiovascular History: Reports: None Respiratory History: Reports: Asthma (mild, inhalers prn.) Gastrointestinal History: Reports: Other (See Below) Other Gastrointestinal History: occasional heartburn Genitourinary History: Reports: None 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: , 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
[2019-04-22] MEDS ORDERED: fentaNYL 100 MCG/2 ML SDV ONE (10:33)
[2019-04-22] MEDS ORDERED: Propofol 200 MG/20 ML SDV ONE (10:33)
[2019-04-22] MEDS ORDERED: Midazolam 1 MG/ML 2 ML SDV ONE (10:33)
[2019-04-22] MEDS ORDERED: Glycopyrrolate 0.2 MG/ML SDV ONE (10:34)
[2019-04-22] MEDS ORDERED: Lidocaine 2% 5 ML SDV ONE (10:34)
[2019-04-22] MEDS ORDERED: Ondansetron 4 MG/2 ML SDV ONE (10:34)
[2019-04-22] MEDS ORDERED: Ketorolac 30 MG/ML SDV ONE (10:34)
[2019-04-22] MEDS ORDERED: Dexamethasone 4 MG/ML 5 ML MDV ONE (10:34)
[2019-04-22] MEDS ORDERED: Lactated Ringers 1,000 ML IV SCH (11:30)
[2019-04-22] MEDS ORDERED: Methylergonovine 0.2 MG/1 ML Amp ONE (12:37)
--- NOTE | 2019-04-22 12:48 | PCM.OPNOTE ---
- General Post-Op/Procedure Note Date of Surgery/Procedure: 04/22/19 Operative Procedure(s): suction D&C Findings: preop uterus 10 weeks size, boggy, sounds to 10cm, postop uterus 7 weeks size firm. Pre Op Diagnosis: Incomplete miscarriage. Post-Op Diagnosis: Same Primary Surgeon: Claudia Gunter Secondary Surgeon: Viviane Corbin Anesthesia Provider: Shabbir [facility] Liaison: Juancarlos Inman Pathology: products of conception Fluid Replacement, Intraop: 1,000 EBL in mLs: 300 Complications: None Known Condition: Good
--- NOTE | 2019-04-22 13:17 | PCM.POSTAN ---
POST ANESTHESIA ASSESSMENT - VITAL SIGNS Vital Signs: Last Vital Signs Temp 36 C 04/22/19 12:46 Pulse 62 04/22/19 13:03 Resp 8 L 04/22/19 13:03 BP 105/62 04/22/19 13:03 Pulse Ox 100 04/22/19 13:03 - RESPIRATORY Respiratory Status: Respiratory Rate WNL - CARDIOVASCULAR CV Status: Pulse Rate WNL - GASTROINTESTINAL GI Status: No Symptoms - POST OP HYDRATION Hydration Status: Adequate & Stable
--- NOTE | 2019-04-22 14:14 | PCM48HPAN ---
Post Anesthesia Note - EVALUATION WITHIN 48HRS OF ANESTHETIC Vital Signs in Normal Range: Yes Patient Participated in Evaluation: Yes Respiratory Function Stable: Yes Airway Patent: Yes Cardiovascular Function Stable: Yes Hydration Status Stable: Yes Pain Control Satisfactory: Yes Nausea and Vomiting Control Satisfactory: Yes Mental Status Recovered: Yes Vital Signs: Last Vital Signs Temp 36 C 04/22/19 12:46 Pulse 59 L 04/22/19 13:17 Resp 14 04/22/19 13:17 BP 105/63 04/22/19 13:17 Pulse Ox 100 04/22/19 13:17
--- NOTE | 2019-04-22 15:41 | OR ---
SURGEON: Claudia Gunter M.D. DATE OF PROCEDURE: 04/22/2019 I am performing this procedure covering as locum for Dr. Perera. PREOPERATIVE DIAGNOSIS: Nine-week intrauterine , incomplete miscarriage. POSTOPERATIVE DIAGNOSIS: Nine-week intrauterine , incomplete miscarriage. PROCEDURES: Suction, dilatation, and curettage. PRIMARY SURGEON: Claudia Gunter M.D. SWIMMING POOL INSTALLER: CONCEPCIÓN Louis. ANESTHESIA: General LMA. EBL: 300 mL. FLUIDS: 1000 mL crystalloid. FINDINGS: Preoperatively, the uterus was anteverted, 10-week size, boggy; cervix soft. Postoperatively, uterus was firm, 7-week size, anteverted, firm. COMPLICATIONS: None known. DISPOSITION: Stable to recovery. PATHOLOGY SPECIMEN: Products of conception. BRIEF HISTORY: This is a 33-year-old female, she presents on 04/16/2019, with an ultrasound confirming a 9-week intrauterine demise. She preferred management with Cytotec. She received oral Cytotec 200 mcg twice a day for 4 days. She had a small amount of bleeding, which then discontinued. She was seen by Michelle Casillas, her provider, today and as she had not passed any tissue, a decision was made to proceed with a suction, dilatation, and curettage. I personally consented the patient and reviewed options including continued expected management, repeat Cytotec, or proceeding with suction, dilatation, and curettage with known risks including bleeding, infection, uterine perforation with injury to surrounding organs, risk of Asherman syndrome and risk of anesthesia. Understanding all these risks, she does desire to proceed. DESCRIPTION OF PROCEDURE: With the patient in dorsal lithotomy position, under adequate general LMA analgesia, the perineum and vagina were prepped with Betadine and draped in usual fashion for vaginal surgery. She had voided immediately prior to being taken to the operating room. Bimanual examination was performed with findings as noted above. A bivalve speculum was placed in the vagina. The anterior lip of the cervix was grasped with an Allis clamp. The uterus sounded to 10 cm. The cervix was dilated to a 10 mm Hegar dilator. With ultrasound assistance, a 10 mm suction curette was placed to the uterine fundus and retracted repetitively with a [id number] quantity of tissue obtained. After three passes, ultrasound was performed. There was no further tissue remaining. One additional pass was taken to remove clots. Sharp curettage was gently performed at the 12, 3, 6, and 9 o'clock position. No further tissue was obtained and a good uterine cry was felt. She did receive Methergine 0.2 mg IM, and bimanual examination after all the instruments were removed revealed a firm anteverted 7- week size uterus with minimal bleeding. Estimated blood loss was 300. However, the excess fluid had already been sucked through the cannula before blood loss was assessed, so this is a rough estimate only, and final sponge, needle, and instrument counts were reported as correct. There were no complications. The patient was transferred to recovery in good condition. RAMÓN CARCAMO /[id number]
== END 2019-04-22 13:55 | disposition home or self-care (01) ==
LOC: MW.SDS 09:50
PROVIDERS: ATTEND Obstetrics & Gynecology
DX: O03.4 Incomplete spontaneous abortion without complication (principal); J45.909 Unspecified asthma, uncomplicated; Z87.891 Personal history of nicotine dependence; Z91.09 Other allergy status, other than to drugs and biological substances
CPT/HCPCS: 36415; 59812; 85025; 86850; 86900; 86901; 88305; J1100; J1885; J2001; J2210; J2250; J2405; J2704; J3010; J3490; J7120; 01965

== ENCOUNTER 2020-04-29 05:14 | Inpatient (IN) | payer OTHER ==
[2020-04-29] MEDS ORDERED: Sodium Chloride 0.9% 10 ML Syringe FLUSH PRN (05:41)
[2020-04-29] MEDS ORDERED: Sodium Chloride 0.9% 10 ML SDV IV PRN (05:41)
[2020-04-29] MEDS ORDERED: Sodium Chloride 0.9% 2.5 ML Syringe FLUSH PRN (05:41)
[2020-04-29] MEDS: Lactated Ringers 1,000 ML IV SCH ×5 (05:56→13:59)
[2020-04-29] MEDS ORDERED: Morphine PF 10 MG/10 ML SDV ONE (07:20)
[2020-04-29] MEDS ORDERED: Oxytocin 10 Units/1 ML SDV ONE (07:20)
[2020-04-29] MEDS ORDERED: Sodium Chloride 0.9% 20 ML ONE ×2 (07:20→07:24)
[2020-04-29] MEDS ORDERED: ceFAZolin 1 GM Vial ONE (07:20)
[2020-04-29] MEDS ORDERED: Ondansetron 4 MG/2 ML SDV ONE (07:20)
[2020-04-29] MEDS ORDERED: ePHEDrine 50 MG/ML SDV ONE (07:24)
[2020-04-29] MEDS ORDERED: ceFAZolin 2 GM in Premix Bag 1 BAG IV ONE (07:30)
[2020-04-29] MEDS ORDERED: Citric Acid/Sodium Citrate Solution 30 ML Cup PO ONE (07:30)
[2020-04-29] MEDS ORDERED: Nalbuphine 10 MG/1 ML Vial IVPUSH PRN (07:35)
[2020-04-29] MEDS ORDERED: Acetaminophen/oxyCODONE 325-5 MG Tab PO PRN ×3 (07:35→09:24)
[2020-04-29] MEDS ORDERED: fentaNYL 100 MCG/2 ML SDV IVPUSH PRN (07:35)
--- NOTE | 2020-04-29 07:35 | PCM.PREANE ---
Preanesthetic Assessment - Anesthesia/Transfusion/Family Hx Anesthesia History: Prior Anesthesia Without Reaction Family History of Anesthesia Reaction: No Transfusion History: No Prior Transfusion(s) Intubation History: Unknown - Review of Systems General: No Symptoms Pulmonary: No Symptoms Cardiovascular: No Symptoms Gastrointestinal: No Symptoms Neurological: No Symptoms Other: Reports: None - Physical Assessment NPO Status Date: 04/28/20 Height: 5 ft 4 in Weight: 86.636 kg ASA Class: 2 Mental Status: Alert & Oriented x3 Airway Class: Mallampati = 2 Dentition: Reports: Normal Dentition ROM/Head Extension: Full Lungs: Clear to Auscultation, Normal Respiratory Effort Cardiovascular: Regular Rate, Regular Rhythm - Lab Values: Laboratory Last Values WBC 11.89 K/uL (4.0-11.0) H 04/29/20 05:30 RBC 4.01 M/uL (4.30-5.90) L 04/29/20 05:30 Hgb 10.8 g/dL (12.0-16.0) L 04/29/20 05:30 Hct 34.3 % (36.0-46.0) L 04/29/20 05:30 MCV 85.5 fL (80.0-98.0) 04/29/20 05:30 MCH 26.9 pg (27.0-32.0) L 04/29/20 05:30 MCHC 31.5 g/dL (31.0-37.0) 04/29/20 05:30 RDW Std Deviation 50.0 fl (28.0-62.0) 04/29/20 05:30 RDW Coeff of Jose 16 % (11.0-15.0) H 04/29/20 05:30 Plt Count 173 K/uL (150-400) 04/29/20 05:30 MPV 13.00 fL (7.40-12.00) H 04/29/20 05:30 Nucleated RBC % 0.0 /100WBC 04/29/20 05:30 Nucleated RBCs # 0 K/uL 04/29/20 05:30 Blood Type O POSITIVE 04/29/20 05:30 Antibody Screen NEGATIVE 04/29/20 05:30 - Allergies Allergies/Adverse Reactions: Allergies Allergy/AdvReac Type Severity Reaction Status Date / Time eucalyptus Allergy Shortness Verified 04/25/20 10:29 of Breath - Blood Blood Available: No - Anesthesia Plan Pre-Op Medication Ordered: Other (bicitra) - Acknowledgements Anesthesia Type Planned: Spinal Pt an Appropriate Candidate for the Planned Anesthesia: Yes Alternatives and Risks of Anesthesia Discussed w Pt/Guardian: Yes Pt/Guardian Understands and Agrees with Anesthesia Plan: Yes Additional Comments: PMH: gest dm-diet controlled, RAD- inactive during PLAN: spinal with duramorph PreAnesthesia Questionnaire - Past Health History Medical/Surgical History: Denies Medical/Surgical History HEENT History: Reports: Impaired Vision, Other (See Below) Other HEENT History: wears glasses Cardiovascular History: Reports: None Respiratory History: Reports: Asthma Gastrointestinal History: Reports: Other (See Below) Other Gastrointestinal History: occasional heartburn Genitourinary History: Reports: Other (See Below) Other Genitourinary History: fibrocystic breast 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: , 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 Musculoskeletal History: Reports: None Neurological History: Reports: Concussion Psychiatric History: Reports: Anxiety Endocrine/Metabolic History: Reports: Diabetes, Gestational, Obesity/BMI 30+ Hematologic History: Reports: None Immunologic History: Reports: None Oncologic (Cancer) History: Reports: None Dermatologic History: Reports: None - Infectious Disease History Infectious Disease History: Reports: None Other Infectious Disease History: when a child - Past Surgical History HEENT Surgical History: Reports: None Respiratory Surgical History: Reports: None Female Surgical History: Reports: Section, D&C Endocrine Surgical History: Reports: None - SUBSTANCE USE Tobacco Use Status *Q: Former Tobacco User Tobacco Use Within Last Twelve Months: Cigarettes Recreational Drug Use History: Yes Recreational Drug Type: Reports: Marijuana/Hashish - HOME MEDS Home Medications: Home Meds Albuterol Sulfate [Proair Hfa] 1 - 2 puff INH Q4H PRN 04/22/19 [History] Fluticasone Propionate [Flovent HFA] 1 puff INH ASDIRECTED PRN 04/22/19 [History] Iron 1 tab PO BID 04/25/20 [History] Lansoprazole [Prevacid] 1 tab PO DAILY 04/25/20 [History] 95/Iron Fum/Folic/Dha [ + Dha Combo Pack] 1 packet PO DAILY 04/25/20 [History] - CURRENT (IN HOUSE) MEDS Current Meds: Current Medications Oxytocin/Sodium Chloride (Oxytocin 30 Unit/500 Ml-Ns) 30 unit in 500 mls @ 250 mls/hr IV TITRATE GODWIN Cefazolin Sodium/Dextrose 2 gm (/ Premix) 50 mls @ 100 mls/hr IV ONETIME ONE Stop: 04/29/20 07:59 Lactated Ringer's (Ringers, Lactated) 1,000 mls @ 500 mls/hr IV BOLUS GODWIN Last Admin: 04/29/20 06:51 Dose: 999 mls/hr Documented by: Sodium Chloride (Saline Flush) 10 ml FLUSH ASDIRECTED PRN PRN Reason: Keep Vein Open Sodium Chloride (Saline Flush) 2.5 ml FLUSH ASDIRECTED PRN PRN Reason: Keep Vein Open Sodium Chloride (Normal Saline) 10 ml IV ASDIRECTED PRN PRN Reason: IV Use Discontinued Medications Cefazolin Sodium (Ancef) Confirm Administered Dose 2 gm .ROUTE .STK-MED ONE Stop: 04/29/20 07:21 Citric Acid/Sodium Citrate (Bicitra Solution) 30 ml PO ONETIME ONE Stop: 04/29/20 07:31 Ephedrine Sulfate (Ephedrine Sulfate) Confirm Administered Dose 50 mg .ROUTE .STK-MED ONE Stop: 04/29/20 07:25 Sodium Chloride (Normal Saline) Confirm Administered Dose 20 mls @ as directed .ROUTE .STK-MED ONE Stop: 04/29/20 07:21 Sodium Chloride (Normal Saline) Confirm Administered Dose 20 mls @ as directed .ROUTE .STK-MED ONE Stop: 04/29/20 07:25 Morphine Sulfate (Duramorph Pf) Confirm Administered Dose 10 mg .ROUTE .STK-MED ONE Stop: 04/29/20 07:21 Ondansetron HCl (Zofran) Confirm Administered Dose 4 mg .ROUTE .STK-MED ONE Stop: 04/29/20 07:21 Oxytocin (Pitocin) Confirm Administered Dose 30 unit .ROUTE .STK-MED ONE Stop: 04/29/20 07:21
[2020-04-29] MEDS ORDERED: Octyl 2-Cyanoacrylate 1 Tube ONE (07:41)
[2020-04-29] MEDS ORDERED: Oxytocin/0.9 % Sodium Chloride 30 UNIT/500 ML BAG IV SCH (08:00)
[2020-04-29] MEDS ORDERED: fentaNYL 100 MCG/2 ML SDV ONE ×2 (08:24→08:26)
[2020-04-29] MEDS ORDERED: Metoclopramide 10 MG/2 ML SDV ONE (08:27)
[2020-04-29] MEDS ORDERED: Propofol 200 MG/20 ML SDV ONE (08:28)
--- NOTE | 2020-04-29 09:23 | PCM.OPNOTE ---
- General Post-Op/Procedure Note Date of Surgery/Procedure: 04/29/20 Operative Procedure(s): repeat low transverse Findings: liveborn female APGAR9/9 weight 4050 grams, small anterior subserosal fibroid, otherwise normal pelvis. Pre Op Diagnosis: 39 weeks prior desires repeat Post-Op Diagnosis: Same Anesthesia Technique: Spinal Primary Surgeon: Claudia Gunter Anesthesia Provider: Lucas Yates Dials Supervisor: Lucas Jimenez Pathology: none Fluid Replacement, Intraop: 1,000 Output, Urine Amount: 20 EBL in mLs: 600 Complications: None Known Condition: Good
[2020-04-29] MEDS ORDERED: Ondansetron 4 MG/2 ML SDV IVPUSH PRN (09:24)
[2020-04-29] MEDS ORDERED: Oxytocin 10 Units/1 ML SDV IM PRN (09:24)
[2020-04-29] MEDS ORDERED: diphenhydrAMINE 50 MG/ML SDV IVPUSH PRN (09:24)
[2020-04-29] MEDS ORDERED: Lanolin 100% Cream 7 GM Tube TOP PRN (09:24)
[2020-04-29] MEDS ORDERED: Tranexamic Acid 1,000 MG in Sodium Chloride 0.9% 100 ML IV PRN (09:24)
[2020-04-29] MEDS ORDERED: Misoprostol 200 MCG Tab RECTAL PRN (09:24)
[2020-04-29] MEDS ORDERED: Bisacodyl 10 MG Supp RECTAL PRN (09:24)
[2020-04-29] MEDS ORDERED: Oxytocin/Lactated Ringers 30 UNIT/500 ML BAG IV SCH (09:30)
[2020-04-29] MEDS: Ketorolac 30 MG/ML SDV IVPUSH SCH ×3 (09:41→21:50)
--- NOTE | 2020-04-29 10:58 | OR ---
SURGEON: Claudia Gunter M.D. DATE OF PROCEDURE: 04/29/2020 PREOPERATIVE DIAGNOSES: 1. A 39-week intrauterine . 2. Prior low-transverse section. POSTOPERATIVE DIAGNOSES: 1. A 39-week intrauterine . 2. Prior low-transverse section. PROCEDURE PERFORMED: Repeat low-transverse section. ANESTHESIA: Spinal. ESTIMATED BLOOD LOSS: 600 mL. FLUIDS: 1000 mL of crystalloid. URINE OUTPUT: The patient had voided prior to arrival in the OR. Urine output during the surgery 20 mL. COMPLICATIONS: None known. DISPOSITION: Mother and baby in LDR in good condition. OPERATIVE FINDINGS: Normal-appearing uterus, tubes, and ovaries with a small 2 cm anterior subserosal fibroid. Liveborn female, scores of 9 and 9, weighing 4050 g. BRIEF HISTORY: This is a 35-year-old female. She presents for repeat at 39 weeks' gestation with uncomplicated care. She declines vaginal trial of labor. Risks of surgery were discussed including bleeding; infection; injury to bowel, bladder, blood vessels, or other organs; risk of thromboembolic event; and risk of anesthesia. Understanding all these risks, she does desire to proceed. DESCRIPTION OF PROCEDURE: With the patient in left tilt position, under adequate spinal analgesia, the abdomen was prepped with chlorhexidine and draped in the usual fashion for abdominal surgery. SCDs were in place, Hamlin catheter had been placed, and an appropriate time-out was held. She received 2 g of Ancef IV. After documentation of adequate analgesia, the prior cicatrix was excised with a scalpel, and the incision was carried through the subcutaneous tissue. The fascia was scored transversely in the midline. The fascial incision was extended laterally using curved Artegaa scissors. The fascia was elevated from the underlying rectus muscle using sharp and blunt dissection. The rectus muscles were in the midline using sharp and blunt dissection. A finger was placed into the peritoneal cavity. There were no adhesions anteriorly. The incision was extended using sharp and blunt dissection. The Ton O retractor was placed into the peritoneal cavity. The visceral peritoneum over the lower uterine segment was incised to develop an adequate bladder flap, and a transverse curvilinear incision was made over the lower uterine segment. A finger was used to enter the amniotic cavity. Clear fluid was noted. The incision was extended transversely using cephalad and caudad pressure, and the head was delivered via the uterine incision with subsequent delivery of the infant's shoulders and body with fundal pressure. The infant was bulb suctioned by nose and mouth, and the was a live born female, scores of 9 and 9, weighing 4050 g. After 1 minute, the cord was doubly clamped and cut. Cord ABGs were obtained as well as routine cord blood sampling. Pitocin was initiated after delivery of the infant to assist with delivery of the placenta, which was delivered spontaneously with fundal massage. The uterus was cleaned with a dry laparotomy tape. The cervix was opened with ring forceps. The uterine incision was closed with a running lock suture of 0 Polysorb followed by an imbricating layer of 0 Polysorb. Additional gmadol-ju-ovvfx sutures were placed for complete hemostasis. Once hemostasis had been obtained, the pericolic gutters and posterior cul-de-sac were cleaned with a wet laparotomy tape. Tubes and ovaries were inspected and appeared normal. The uterine incision was again inspected and was completely hemostatic. Therefore, the rectus muscle and peritoneum were loosely approximated in the midline using a running mattress suture of 0 Polysorb. The posterior aspect of the fascia was inspected, and any areas of bleeding that were noted were cauterized. The fascial incision was closed with a running suture of 0 Polysorb. Subcutaneous tissue was irrigated. Any areas of bleeding that were noted were cauterized. The skin was closed with a running subcuticular suture of 3-0 Monocryl followed by Dermabond. Final sponge, needle, and instrument counts were reported as correct. There were no known complications. Mother and baby are in LDR in good condition. RAMÓN / DONA /[id number]
--- NOTE | 2020-04-29 11:26 | PCM.POSTAN ---
POST ANESTHESIA ASSESSMENT - MENTAL STATUS Mental Status: Alert, Oriented - RESPIRATORY Respiratory Status: Respiratory Rate WNL, Airway Patent, O2 Saturation Stable - CARDIOVASCULAR CV Status: Pulse Rate WNL, Blood Pressure Stable - GASTROINTESTINAL GI Status: No Symptoms - POST OP HYDRATION Hydration Status: Adequate & Stable
[2020-04-29] MEDS: Docusate Sodium 100 MG Cap PO SCH (21:50)
[2020-04-30] MEDS: Ketorolac 30 MG/ML SDV IVPUSH SCH ×2 (04:26→10:00)
--- NOTE | 2020-04-30 08:34 | PCM.PNPP ---
- General Info Date of Service: 04/30/20 Functional Status: Reports: Pain Controlled, Tolerating Diet, Ambulating, Urinating - Review of Systems General: Reports: No Symptoms HEENT: Reports: No Symptoms Pulmonary: Reports: No Symptoms Cardiovascular: Reports: No Symptoms Gastrointestinal: Reports: No Symptoms Genitourinary: Reports: No Symptoms Musculoskeletal: Reports: No Symptoms Skin: Reports: No Symptoms Neurological: Reports: No Symptoms Psychiatric: Reports: No Symptoms - Patient Data Vital Signs - Most Recent: Last Vital Signs Temp 36.2 C 04/30/20 00:00 Pulse 72 04/30/20 00:00 Resp 15 04/30/20 00:00 BP 118/65 04/30/20 00:00 Pulse Ox 98 04/30/20 00:00 Weight - Most Recent: 86.636 kg I&O - Last 24 Hours: Intake & Output 04/29/20 04/30/20 04/30/20 22:59 06:59 14:59 Intake Total 1601 Output Total 350 1200 Balance 1251 -1200 Lab Results - Last 24 Hours: Laboratory Results - last 24 hr 04/29/20 04/30/20 Range/Units 08:16 05:57 Hgb 9.1 L (12.0-16.0) g/dL Hct 29.2 L (36.0-46.0) % Cord ABG pH 7.265 (7.18-7.38) Cord ABG Base Excess -6 (-10--2) Cord VBG pH 7.318 (7.25-7.45) Cord VBG Base Excess -6 (-10--2) Med Orders - Current: Current Medications Bisacodyl (Dulcolax) 10 mg RECTAL ONETIME PRN PRN Reason: Constipation Diphenhydramine HCl (Benadryl) 25 mg IVPUSH Q6H PRN PRN Reason: Itching or Nausea Docusate Sodium (Colace) 100 mg PO BID [facility] Last Admin: 04/29/20 21:50 Dose: 100 mg Documented by: Emollient Ointment (Lansinoh Hpa) 0 gm TOP ASDIRECTED PRN PRN Reason: Sore Nipples Lactated Ringer's (Ringers, Lactated) 1,000 mls @ 125 mls/hr IV ASDIRECTED GODWIN Last Infusion: 04/29/20 14:26 Dose: 125 mls/hr Documented by: Oxytocin/Lactated Ringer's (Pitocin In Lr 30 Units/500 Ml) 30 unit in 500 mls @ 999 mls/hr IV TITRATE GODWIN; Protocol Tranexamic Acid 1,000 mg/ (Sodium Chloride) 110 mls @ 660 mls/hr IV ONETIME PRN PRN Reason: Bleeding Ibuprofen (Motrin) 800 mg PO Q8H PRN PRN Reason: mild pain or fever Ketorolac Tromethamine (Toradol) 30 mg IVPUSH Q6H [facility] Stop: 04/30/20 09:31 Last Admin: 04/30/20 04:26 Dose: 30 mg Documented by: Misoprostol (Cytotec) 1,000 mcg RECTAL ONETIME PRN PRN Reason: excessive bleeding Ondansetron HCl (Zofran) 4 mg IVPUSH Q4H PRN PRN Reason: Nausea/Vomiting Oxycodone/Acetaminophen (Percocet 325-5 Mg) 1 tab PO ONETIME PRN PRN Reason: Pain (moderate 4-6) Oxycodone/Acetaminophen (Percocet 325-5 Mg) 1 tab PO Q4H PRN PRN Reason: Pain (moderate 4-6) Oxycodone/Acetaminophen (Percocet 325-5 Mg) 2 tab PO Q4H PRN PRN Reason: Pain (moderate 4-6) Oxytocin (Pitocin) 10 unit IM ASDIRECTED PRN PRN Reason: Excessive Vaginal Bleeding Discontinued Medications Cefazolin Sodium (Ancef) Confirm Administered Dose 2 gm .ROUTE .STK-MED ONE Stop: 04/29/20 07:21 Citric Acid/Sodium Citrate (Bicitra Solution) 30 ml PO ONETIME ONE Stop: 04/29/20 07:31 Last Admin: 04/29/20 07:44 Dose: 30 ml Documented by: Ephedrine Sulfate (Ephedrine Sulfate) Confirm Administered Dose 50 mg .ROUTE .STK-MED ONE Stop: 04/29/20 07:25 Fentanyl (Sublimaze) 50 mcg IVPUSH Q5M PRN PRN Reason: Pain (severe 7-10) Stop: 04/30/20 07:37 Fentanyl (Sublimaze) Confirm Administered Dose 100 mcg .ROUTE .STK-MED ONE Stop: 04/29/20 08:25 Fentanyl (Sublimaze) Confirm Administered Dose 100 mcg .ROUTE .STK-MED ONE Stop: 04/29/20 08:27 Oxytocin/Sodium Chloride (Oxytocin 30 Unit/500 Ml-Ns) 30 unit in 500 mls @ 250 mls/hr IV TITRATE [facility] Cefazolin Sodium/Dextrose 2 gm (/ Premix) 50 mls @ 100 mls/hr IV ONETIME ONE Stop: 04/29/20 07:59 Last Admin: 04/29/20 12:13 Dose: Not Given Documented by: Lactated Ringer's (Ringers, Lactated) 1,000 mls @ 500 mls/hr IV BOLUS GODWIN Last Admin: 04/29/20 07:50 Dose: 999 mls/hr Documented by: Sodium Chloride (Normal Saline) Confirm Administered Dose 20 mls @ as directed .ROUTE .STK-MED ONE Stop: 04/29/20 07:21 Sodium Chloride (Normal Saline) Confirm Administered Dose 20 mls @ as directed .ROUTE .STK-MED ONE Stop: 04/29/20 07:25 Metoclopramide HCl (Reglan) Confirm Administered Dose 10 mg .ROUTE .STK-MED ONE Stop: 04/29/20 08:28 Morphine Sulfate (Duramorph Pf) Confirm Administered Dose 10 mg .ROUTE .STK-MED ONE Stop: 04/29/20 07:21 Nalbuphine HCl (Nubain) 2.5 mg IVPUSH Q3H PRN PRN Reason: Pruritis Stop: 04/30/20 07:37 Octyl Cyanoacrylate (Dermabond Advance) Confirm Administered Dose 1 applic .ROUTE .STK-MED ONE Stop: 04/29/20 07:42 Last Admin: 04/29/20 12:12 Dose: Not Given Documented by: Ondansetron HCl (Zofran) Confirm Administered Dose 4 mg .ROUTE .STK-MED ONE Stop: 04/29/20 07:21 Oxytocin (Pitocin) Confirm Administered Dose 30 unit .ROUTE .STK-MED ONE Stop: 04/29/20 07:21 Propofol (Diprivan 20 Ml) Confirm Administered Dose 200 mg .ROUTE .STK-MED ONE Stop: 04/29/20 08:29 Sodium Chloride (Saline Flush) 10 ml FLUSH ASDIRECTED PRN PRN Reason: Keep Vein Open Sodium Chloride (Saline Flush) 2.5 ml FLUSH ASDIRECTED PRN PRN Reason: Keep Vein Open Sodium Chloride (Normal Saline) 10 ml IV ASDIRECTED PRN PRN Reason: IV Use - Interaction Infant Disposition, : in Room with Family Interaction: Holding Infant Feeding: Breastfed ; Nursed Well Support Person: - Recovery Exam Fundal Tone: Firm Fundal Level: 1 Fingerbreadths Below Umbilicus Fundal Placement: Midline Lochia Amount: Scant Lochia Color: Rubra/Red Perineum Description: Intact, Minimal Bruising/Swelling Episiotomy/Laceration: None Bladder Status: Indwelling Catheter in Place - Exam General: Alert, Oriented Neck: Supple Lungs: Normal Respiratory Effort GI/Abdominal Exam: Soft, Non-Tender Extremities: Normal Range of Motion, Non-Tender. No: No Pedal Edema (2+ right, 1+ left) Skin: Warm, Dry, Intact Wound/Incisions: Dressing Dry and Intact Neurological: No New Focal Deficit - Problem List & Annotations (1) delivery delivered SNOMED Code(s): 978488203 Code(s): O82 - ENCOUNTER FOR DELIVERY WITHOUT INDICATION Status: Acute Priority: High Current Visit: No - Problem List Review Problem List Initiated/Reviewed/Updated: Yes - My Orders Last 24 Hours: My Active Orders 04/29/20 09:24 Patient Status [ADT] Routine Ambulate [RC] PER UNIT ROUTINE Antiembolic Devices [RC] PER UNIT ROUTINE Communication Order [RC] PER UNIT ROUTINE Communication Order [RC] PER UNIT ROUTINE Communication Order [RC] Per Unit Routine May Shower [RC] ASDIRECTED RT Incentive Spirometry [RC] Q2HWA Vital Signs [RC] PER UNIT ROUTINE Acetaminophen/oxyCODONE [Percocet 325-5 MG] 1 tab PO Q4H PRN Acetaminophen/oxyCODONE [Percocet 325-5 MG] 2 tab PO Q4H PRN Lanolin [Lansinoh HPA] See Dose Instructions TOP ASDIRECTED PRN Ondansetron [Zofran] 4 mg IVPUSH Q4H PRN Oxytocin [Pitocin] 10 unit IM ASDIRECTED PRN Tranexamic Acid [Cyklokapron] 1,000 mg Sodium Chloride 0.9% [Normal Saline] 100 ml IV ONETIME bisacodyL [Dulcolax] 10 mg RECTAL ONETIME PRN diphenhydrAMINE [Benadryl] 25 mg IVPUSH Q6H PRN miSOPROStoL [Cytotec] 1,000 mcg RECTAL ONETIME PRN Abdominal Binder [OM.PC] Urgent Assess Lochia [WOMSER] Per Unit Routine Assess Uterine Involution [WOMSER] Per Unit Routine Breast Pump [WOMSER] Per Unit Routine Peripheral IV Discontinue [OM.PC] Routine Sequential Compression Device [OM.PC] Per Unit Routine Resuscitation Status Routine 04/29/20 09:25 Notify Provider Intake and Out [RC] ASDIRECTED Notify Provider Vital Signs [RC] ASDIRECTED 04/29/20 09:30 Ketorolac [Toradol] 30 mg IVPUSH Q6H Lactated Ringers [Ringers, Lactated] 1,000 ml IV ASDIRECTED Oxytocin/Lactated Ringers [Pitocin in LR 30 Units/500 ML] 30 unit in 500 ml IV TITRATE 04/29/20 Lunch Regular Diet [DIET] 04/29/20 21:00 Docusate Sodium [Colace] 100 mg PO BID 04/30/20 15:30 Ibuprofen [Motrin] 800 mg PO Q8H PRN - Assessment Assessment:: POD#1 after repeat low transverse . STable, pain is well controlled, well. She would like to be discharged to home today. - Plan Plan:: Discharge instructions reviewed.
[2020-04-30] MEDS: Docusate Sodium 100 MG Cap PO SCH (09:05)
--- NOTE | 2020-04-30 09:26 | PCM48HPAN ---
Post Anesthesia Note - EVALUATION WITHIN 48HRS OF ANESTHETIC Vital Signs in Normal Range: Yes Patient Participated in Evaluation: Yes Respiratory Function Stable: Yes Airway Patent: Yes Cardiovascular Function Stable: Yes Hydration Status Stable: Yes Pain Control Satisfactory: Yes Nausea and Vomiting Control Satisfactory: Yes Mental Status Recovered: Yes Vital Signs: Last Vital Signs Temp 36.4 C 04/30/20 04:30 Pulse 73 04/30/20 07:00 Resp 15 04/30/20 07:00 BP 117/67 04/30/20 04:30 Pulse Ox 97 04/30/20 07:00 - COMMENTS/OBSERVATIONS Free Text/Narrative:: No Problems post.
[2020-04-30] MEDS ORDERED: Ibuprofen 800 MG Tab PO PRN (15:30)
== END 2020-04-30 13:58 | disposition home or self-care (01) | DRG 788 ==
LOC: MW.OB 05:14
PROVIDERS: ADMIT Obstetrics & Gynecology; ATTEND Obstetrics & Gynecology
PROC: 10D00Z1 Extraction of Products of Conception, Low, Open Approach (ICD-10-PCS; principal; 2020-04-29)
DX: O34.211 Maternal care for low transverse scar from previous cesarean delivery (principal); Z3A.38 38 weeks gestation of pregnancy; Z37.0 Single live birth; O24.420 Gestational diabetes mellitus in childbirth, diet controlled; O99.824 Streptococcus B carrier state complicating childbirth
CPT/HCPCS: 36415; 59025; 82803; 85014; 85018; 85027; 86592; 86850; 86900; 86901; A9270-GY; J0690; J1885; J2270; J2405; J2590; J2704; J2765; J3010; J7120